=== PATIENT | female | born 2000 | race Caucasian/White ===

== ENCOUNTER 2018-06-02 04:34 | Emergency (ER) | payer OTHER ==
[~2018-06-02] VITALS: Ht 165.1 cm; Wt 68.0 kg
[2018-06-02] MEDS ORDERED: KEPPRA 500 MG500 M1 PO (04:52)
[2018-06-02] MEDS ORDERED: SYNTHROID25 MC1 PO (04:53)
[2018-06-02] MEDS ORDERED: DEPAKOTE ER500 MG PO (04:53)
[2018-06-02] MEDS ORDERED: MINIPRESS2 MG PO (04:54)
[2018-06-02] MEDS ORDERED: REMERON15 MG PO (04:54)
[2018-06-02] MEDS ORDERED: ZYPREXA ZYDIS10 MG PO (04:55)
[2018-06-02] MEDS ORDERED: ZYPREXA5 MG PO (04:55)
[2018-06-02 05:31] LABS: URINE BILIRUBIN NEGATIVE (Negative); URINE BLOOD TRACE (Negative); URINE CLARITY CLEAR; URINE COLOR YELLOW; URINE GLUCOSE-RANDOM* NEGATIVE (Negative); URINE KETONES NEGATIVE (Negative); URINE LEUKOCYTES-REFLEX NEGATIVE (Negative); URINE NITRITE-REFLEX NEGATIVE (Negative); URINE PROTEIN (DIPSTICK) NEGATIVE (Negative); URINE UROBILINOGEN 0.2 E.U./dl (0.2-1.0)
[2018-06-02 05:36] LABS: HEMATOCRIT 29.4 % (37.0-47.0); HEMOGLOBIN 9.7 gm/dL (12.0-15.0); MCH 26.1 pg (26.0-34.0); MCHC 33.1 g/dL (28.0-37.0); MCV 78.9 fL (80.0-100.0); PLATELET COUNT 237 thou/uL (150-400); RBC 3.72 mil/uL (4.20-5.00); RDW 16.4 % (10.5-14.5)
[2018-06-02 05:46] LABS: CALCIUM 8.1 mg/dL (8.5-10.1); CREATININE 0.9 mg/dL (0.6-1.0); POTASSIUM 3.4 mmol/L (3.5-5.1)
[2018-06-02 05:51] LABS: TOTAL BILIRUBIN 0.2 mg/dL (<0.1-1.0)
[2018-06-02 06:01] LABS: ALBUMIN 3.3 g/dL (3.4-5.0)
[2018-06-02 06:27] LABS: ABSOLUTE NEUTROPHILS 2.6 thou/uL (1.4-8.2); ATYPICAL LYMPHS 1 %
[2018-06-02 06:28] LABS: ANISOCYTOSIS 1+; MICROCYTES 2+; POLYCHROMASIA OCCASIONAL
[2018-06-02] MEDS ORDERED: ONDANSETRON HCL4 M2 PO (07:35)
[2018-06-02 08:27] VITALS: BP 125/67
== END 2018-06-02 08:20 | disposition home or self-care (01) ==
LOC: ER 04:34
PROVIDERS: Emergency Medicine
DX: R11.2 Nausea with vomiting, unspecified (principal); R10.31 Right lower quadrant pain; R19.7 Diarrhea, unspecified

== ENCOUNTER 2018-07-01 20:45 | Emergency (ER) | payer OTHER ==
[~2018-07-01] VITALS: Ht 160 cm; Wt 61.2 kg
[~2018-07-01 20:45] MED LIST: DEPAKOTE ER500 MG PO; KEPPRA 500 MG500 M1 PO; MINIPRESS2 MG PO; ONDANSETRON HCL4 M2 PO; REMERON15 MG PO; SYNTHROID25 MC1 PO; ZYPREXA ZYDIS10 MG PO; ZYPREXA5 MG PO
[2018-07-01 21:16] LABS: ABSOLUTE NEUTROPHILS 4.2 thou/uL (1.4-8.2); BASOPHILS 0.5 % (0.0-2.0); EOSINOPHILS 2.8 % (0.0-3.0); HEMATOCRIT 35.8 % (37.0-47.0); HEMOGLOBIN 12.1 gm/dL (12.0-15.0); LYMPHOCYTES 18.6 % (24.0-44.0); MCH 27.3 pg (26.0-34.0); MCHC 33.7 g/dL (28.0-37.0); MCV 80.9 fL (80.0-100.0); MONOCYTES 9.3 % (1.0-8.0); PLATELET COUNT 287 thou/uL (150-400); POLYS 68.8 % (36.0-66.0); RBC 4.42 mil/uL (4.20-5.00); WBC 6.1 thou/uL (4.0-11.0)
[2018-07-01 21:25] LABS: ANION GAP 8 mmol/L (7-16); BUN 9 mg/dL (7-18); CALCIUM 9.1 mg/dL (8.5-10.1); CHLORIDE 103 mmol/L (98-107); CO2 26 mmol/L (21-32); GLUCOSE 99 mg/dL (74-106); SALICYLATE < 2.8 mg/dL (2.8-20.0); SODIUM 137 mmol/L (136-145)
[2018-07-01 21:51] LABS: AMP/METHAMP Negative (Negative); BARBITURATES Negative (Negative); BENZODIAZEPINES Negative (Negative); COCAINE Negative (Negative); METHADONE Negative (Negative); OPIATES Negative (Negative); PCP Negative (Negative)
[2018-07-01 22:03] VITALS: BP 110/61
== END 2018-07-01 22:05 | disposition home or self-care (01) ==
LOC: ER 20:45
PROVIDERS: Emergency Medicine
DX: F44.5 Conversion disorder with seizures or convulsions (principal); F32.9 Major depressive disorder, single episode, unspecified; E03.9 Hypothyroidism, unspecified; Z88.8 Allergy status to other drugs, medicaments and biological substances

== ENCOUNTER 2019-02-15 13:11 | Emergency (ER) | payer OTHER ==
[~2019-02-15] VITALS: Ht 165.1 cm; Wt 86.2 kg
[2019-02-15 13:54] VITALS: BP 140/74
== END 2019-02-15 14:37 | disposition left against medical advice (07) ==
LOC: ER 13:11
DX: R20.0 Anesthesia of skin (principal); R53.1 Weakness; F32.9 Major depressive disorder, single episode, unspecified; E03.9 Hypothyroidism, unspecified; Z88.8 Allergy status to other drugs, medicaments and biological substances; Z90.49 Acquired absence of other specified parts of digestive tract

== ENCOUNTER 2019-12-14 11:28 | Emergency (ER) | payer OTHER ==
[~2019-12-14] VITALS: Ht 165.1 cm; Wt 86.2 kg
[2019-12-14 13:30] VITALS: BP 142/102
--- NOTE | 2019-12-15 13:45 | EKG ---
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
[2019-12-19] MEDS ORDERED: XARELTO20 MG PO (19:14)
[2019-12-19] MEDS ORDERED: VALIUM10 MG PO (19:15)
[2019-12-19] MEDS ORDERED: PROAIR HFA8.5 GM INH (19:16)
== END 2019-12-14 13:30 | disposition left against medical advice (07) ==
LOC: ER 11:28
DX: R56.9 Unspecified convulsions (principal); R10.9 Unspecified abdominal pain; F32.9 Major depressive disorder, single episode, unspecified; E03.9 Hypothyroidism, unspecified; Z88.8 Allergy status to other drugs, medicaments and biological substances

== ENCOUNTER 2019-12-20 17:53 | Emergency (ER) | payer OTHER ==
[~2019-12-20] VITALS: Ht 165.1 cm; Wt 86.2 kg
[~2019-12-20 17:53] MED LIST changes: +PROAIR HFA8.5 GM INH; +VALIUM10 MG PO; +XARELTO20 MG PO
[2019-12-20 18:42] VITALS: BP 135/74
[2019-12-21] MEDS ORDERED: ZOFRAN ODT4 MG PO (06:41)
[2019-12-21] MEDS ORDERED: ACID REDUCER20 MG PO (06:41)
[2019-12-21] MEDS ORDERED: CARAFATE 1 GM TA1 GM PO (06:41)
== END 2019-12-20 18:43 | disposition left against medical advice (07) ==
LOC: ER 17:53
DX: R55 Syncope and collapse (principal); F32.9 Major depressive disorder, single episode, unspecified; Z88.6 Allergy status to analgesic agent; W18.39XA Other fall on same level, initial encounter; Y92.89 Other specified places as the place of occurrence of the external cause; Y93.89 Activity, other specified; Y99.8 Other external cause status

== ENCOUNTER 2019-12-21 04:24 | Emergency (ER) | payer OTHER ==
[~2019-12-21] VITALS: Ht 165.1 cm; Wt 88.5 kg
[2019-12-21] MEDS ORDERED: ACID REDUCER20 MG PO (06:41)
[2019-12-21] MEDS ORDERED: CARAFATE 1 GM TA1 GM PO (06:41)
[2019-12-21] MEDS ORDERED: ZOFRAN ODT4 MG PO (06:41)
[2019-12-21 08:43] VITALS: BP 87/48
[2019-12-21 09:42] LABS: ABSOLUTE NEUTROPHILS 2.1 thou/uL (1.4-8.2); BASOPHILS 0.9 % (0.0-2.0); EOSINOPHILS 3.8 % (0.0-3.0); HEMATOCRIT 37.1 % (37.0-47.0); HEMOGLOBIN 12.6 gm/dL (12.0-15.0); LYMPHOCYTES 33.6 % (24.0-44.0); MCH 28.9 pg (26.0-34.0); MCV 85.2 fL (80.0-100.0); MONOCYTES 11.5 % (1.0-8.0); PLATELET COUNT 364 thou/uL (150-400); POLYS 50.2 % (36.0-66.0); RBC 4.35 mil/uL (4.20-5.00); RDW 16.1 % (10.5-14.5); WBC 4.2 thou/uL (4.0-11.0)
== END 2019-12-21 10:26 | disposition home or self-care (01) ==
LOC: ER 04:24
PROVIDERS: Emergency Medicine
DX: K92.0 Hematemesis (principal); R10.13 Epigastric pain; F32.9 Major depressive disorder, single episode, unspecified; E03.9 Hypothyroidism, unspecified; K29.70 Gastritis, unspecified, without bleeding; Z88.6 Allergy status to analgesic agent; Z88.8 Allergy status to other drugs, medicaments and biological substances

== ENCOUNTER 2020-06-09 15:46 | Inpatient (IN) | payer OTHER ==
[~2020-06-09] VITALS: Ht 165.1 cm; Wt 88.0 kg
[~2020-06-09 15:46] MED LIST changes: +ACID REDUCER20 MG PO; +CARAFATE 1 GM TA1 GM PO; +ZOFRAN ODT4 MG PO
[2020-06-09 15:49] VITALS: BP 167/132
[2020-06-09 17:50] LABS: URINE BILIRUBIN NEGATIVE (Negative); URINE BLOOD NEGATIVE (Negative); URINE CLARITY CLEAR; URINE COLOR YELLOW; URINE GLUCOSE-RANDOM* NEGATIVE (Negative); URINE KETONES NEGATIVE (Negative); URINE LEUKOCYTES-REFLEX NEGATIVE (Negative); URINE NITRITE-REFLEX NEGATIVE (Negative); URINE PROTEIN (DIPSTICK) NEGATIVE (Negative); URINE UROBILINOGEN 0.2 E.U./dl (0.2-1.0)
[2020-06-09 17:59] LABS: AMP/METHAMP Negative (Negative); BARBITURATES Negative (Negative); BENZODIAZEPINES POSITIVE (Negative); COCAINE Negative (Negative); METHADONE Negative (Negative); OPIATES Negative (Negative); PCP Negative (Negative)
[2020-06-09 18:20] LABS: ABSOLUTE NEUTROPHILS 3.3 thou/uL (1.4-8.2); BASOPHILS 0.9 % (0.0-2.0); EOSINOPHILS 1.4 % (0.0-3.0); HEMATOCRIT 38.4 % (37.0-47.0); HEMOGLOBIN 13.3 gm/dL (12.0-15.0); LYMPHOCYTES 23.6 % (24.0-44.0); MCH 29.5 pg (26.0-34.0); MCHC 34.8 g/dL (28.0-37.0); MCV 84.7 fL (80.0-100.0); MONOCYTES 11.5 % (1.0-8.0); PLATELET COUNT 312 thou/uL (150-400); POLYS 62.6 % (36.0-66.0); RBC 4.53 mil/uL (4.20-5.00); RDW 15.2 % (10.5-14.5); WBC 5.3 thou/uL (4.0-11.0)
[2020-06-09 18:32] LABS: ANION GAP 10 mmol/L (7-16); BUN 7 mg/dL (7-18); CALCIUM 9.1 mg/dL (8.5-10.1); CHLORIDE 100 mmol/L (98-107); CO2 26 mmol/L (21-32); CREATININE 0.9 mg/dL (0.6-1.0); GLUCOSE 97 mg/dL (74-106); POTASSIUM 3.5 mmol/L (3.5-5.1); SODIUM 136 mmol/L (136-145)
[2020-06-09 18:34] LABS: APTT 27.8 Seconds (24.5-32.8); INR 1.1; PROTIME 10.8 Seconds (9.3-11.4)
[2020-06-09 18:37] LABS: SGOT 32 U/L (15-37); SGPT 41 U/L (30-65); TOTAL BILIRUBIN 0.4 mg/dL (0.2-1.0); TOTAL PROTEIN 7.5 g/dL (6.4-8.2); TROPONIN-I <0.06 ng/mL (<0.06)
[2020-06-09 19:28] VITALS: BP 167/132
[2020-06-09 21:00] VITALS: BP 97/64
[2020-06-09 23:29] VITALS: BP 108/63
[2020-06-10 03:08] VITALS: BP 103/57
[2020-06-10] MEDS ORDERED: PROZAC20 M1 PO (03:42)
[2020-06-10] MEDS ORDERED: LEVO-T50 MCG PO (03:44)
[2020-06-10] MEDS ORDERED: OMEPRAZOLE 20 M20 M1 PO (03:45)
[2020-06-10] MEDS ORDERED: ZYRTEC 10 MG TA10 MG PO (03:48)
[2020-06-10] MEDS ORDERED: COLACE 100 MG100 MG PO (03:50)
[2020-06-10] MEDS ORDERED: METRONIDAZOLE500 M4 PO (03:52)
[2020-06-10] MEDS ORDERED: METRONIDAZOLE500 M4 (03:52)
[2020-06-10 06:49] LABS: CALCIUM 8.4 mg/dL (8.5-10.1); CREATININE 0.8 mg/dL (0.6-1.0); POTASSIUM 3.5 mmol/L (3.5-5.1)
--- NOTE | 2020-06-10 09:12 | EKG ---
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2000 Requested By: Alber Prasad Order Number: [id number] MD: Rigo Jorgensen Measurements Intervals [place] Rate: 70 P: 23 TN: 136 QRS: -5 QRSD: 105 T: 26 QT: 393 QTc: 425 Interpretive Statements Sinus rhythm RSR' in V1 or V2, right VCD Compared to ECG 12/14/2019 11:41:11 RSR' in V1 or V2 now present Electronically Signed On 06-10-2020 9:12:13 CDT by Rigo Jorgensen [email or web address] <ELECTRONICALLY SIGNED> By: Rigo Jorgensen MD, [facility] 06/10/20911 09 09 Rigo Jorgensen MD, [facility] /EPI
[2020-06-10 16:01] VITALS: BP 122/76
[2020-06-10 16:47] VITALS: BP 105/63
[2020-06-10 16:47] LABS: HEMATOCRIT 40.3 % (37.0-47.0); HEMOGLOBIN 13.8 gm/dL (12.0-15.0); MCH 29.4 pg (26.0-34.0); MCHC 34.2 g/dL (28.0-37.0); RBC 4.68 mil/uL (4.20-5.00); RDW 15.3 % (10.5-14.5)
[2020-06-10 16:58] LABS: CREATININE 1.1 mg/dL (0.6-1.0); POTASSIUM 3.7 mmol/L (3.5-5.1)
[2020-06-10 17:55] VITALS: BP 103/69
[2020-06-11] VITALS (14 sets, daily range): BP systolic 90–126; BP diastolic 43–80
--- NOTE | 2020-06-11 07:53 | EKG ---
[facility] [address] [address] ELECTROCARDIOGRAM REPORT Name: JAMES CAMPBELL Room #: 242-P ADM IN M.R.#: [id number] Admission: 06/09/20 Attend Phys: Sharad Campos MD Discharge: Date of : [birth year] Report #: [id number] THIS REPORT FOR: cc: WILSON - No family physician/PCP WILSON - No family physician/PCP Rigo Jorgensen MD [facility] ~ THIS REPORT FOR: //name// 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 : 2000 Requested By: Sharad Campos Order Number: [id number] MD: Rigo Jorgensen Measurements Intervals [place] Rate: 76 P: 36 [place]: 123 QRS: -19 QRSD: 110 T: 56 QT: 470 QTc: 529 Interpretive Statements Sinus rhythm Borderline left axis deviation RSR' in V1 or V2, probably normal variant Minimal ST depression Prolonged QT interval Compared to ECG 06/09/2020 19:10:36 Prolonged QT interval now present Electronically Signed On 06-11-2020 7:53:30 CDT by Rigo Jorgensen [email or web address] <ELECTRONICALLY SIGNED> By: Rigo Jorgensen MD, FAC 06/11/20 0753 1627 1627 Rigo Jorgensen MD, [facility] /EPI
[2020-06-12] VITALS (19 sets, daily range): BP systolic 91–120; BP diastolic 47–82
[2020-06-13] VITALS (14 sets, daily range): BP systolic 107–132; BP diastolic 51–81
--- NOTE | 2020-06-13 07:58 | EKG ---
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 : 2000 Requested By: Vinicius Peguero Order Number: [id number] MD: Rigo Jorgensen Measurements Intervals [place] Rate: 101 P: 79 [place]: 133 QRS: 9 QRSD: 94 T: 36 QT: 333 QTc: 432 Interpretive Statements Sinus tachycardia RSR' in V1 or V2, right VCD Compared to ECG 06/10/2020 16:27:52 Prolonged QT interval no longer present Electronically Signed On 06-13-2020 7:58:04 CDT by Rigo Jorgensen [email or web address] <ELECTRONICALLY SIGNED> By: Rigo Jorgensen MD, [facility] 06/13/20 0758 1840 1840 Rigo Jorgensen MD, [facility] /EPI
[2020-06-13] MEDS ORDERED: CHLORPROMAZINE25 M3 PO (10:16)
[2020-06-13] MEDS ORDERED: XANAX 0.5 MG0.5 M1 PO (10:16)
[2020-06-13] MEDS ORDERED: KEPPRA XR500 MG PO (11:37)
--- NOTE | 2020-06-15 10:46 | EEG ---
[facility] [place] [address] ELECTROENCEPHALOGRAM Name: JAMES CAMPBELL Room #: 242-P [facility] IN M.R.#: [id number] Admission: 06/09/20 Attend Phys: Sharad Campos MD Discharge: 06/13/20 Date of : 98 Report #: [id number] THIS REPORT FOR: //name// CC: Sharad Campos [facility] physician/PCP DATE OF SERVICE: 06/10/2020 This patient is being evaluated for the possibility of seizure. The patient's EEG was done by placing the electrode by standard 10-20 system of electrode placement. Both referential and sequential montages were used for recording. Background activity in this patient's EEG is about 9 Hz and 30 microvolts. This patient became drowsy and that is associated with bilateral slowing and vertex sharp waves. Photic stimulation was unremarkable. Throughout the record, no active epileptiform activity was noticed. IMPRESSION: This patient's EEG is within normal limits. Thank you very much for this referral. <ELECTRONICALLY SIGNED> By: Lam Garcia MD 06/15/20 1046 1658 1705 Lam Garcia MD /nt
--- NOTE | 2020-06-15 10:46 | HC ---
[facility] [place] [address] CONSULTATION Name: JAMES CAMPBELL Room #: 242-P [facility] IN M.R.#: [id number] Admission: 06/09/20 Attend Phys: Sharad Campos MD Discharge: 06/13/20 Date of : [birth year] Report #: [id number] THIS REPORT FOR: cc: WILSON - No family physician/PCP WILSON - No family physician/PCP Lam Garcia MD ~ CC: Sharad RACHEL physician/PCP DATE OF SERVICE: 06/10/2020 HISTORY OF PRESENT ILLNESS: This is a 20-year-old female patient who was evaluated by me for the possibility of seizure and stroke. The history is pretty confusing and is summarized in admission history and physical examination as well as the Emergency Room physician's evaluation. She said she started having seizure when she was 16. It started in relation to some head injury she had in the past. Records indicate that she has left AMA twice. She indicates that she has not seen any neurologist except when she is admitted to the hospital. The record here indicates that I saw this patient in November. She has been to [facility] and [facility] according to the records, she was pretty reluctant to provide any more history in that regard. REVIEW OF SYSTEMS: Positive for history of DVT. She has an extensive psychiatric history. Today, she gave a history that she has been taking Keppra for a year; that history is different than the one she provided some time ago in November. It looks like from the records, she has been tried on Vimpat as well as Depakote. She does not like Depakote; therefore, she is on Keppra. That was a relevant 14-point review of system. PAST MEDICAL HISTORY: Positive for psychiatric problem. On my examination last time, she had an examination, which appeared to be psychological. She had declined EEGs in the past. She has seen Psychiatry on the last visit. PAST MEDICAL HISTORY: Positive for seizure, but I am not completely certain that all the episodes are epileptiform. FAMILY HISTORY: Noncontributory. SOCIAL HISTORY: She says she does not drink any alcohol. PHYSICAL EXAMINATION: Her examination was pretty limited because of psychiatric overlay. She talks normally. She knows what month it is. She gives a response after sometime. Sometimes, she counts fingers improperly, but when she wants to, it looks like she can count it properly. She moves all four extremities. There is no meningeal sign in this patient. She does have respiratory problems for which she has been admitted. She does not appear to have any significant [address] [address] CONSULTATION Name: JAMES CAMPBELL Room #: 242-P [facility] IN M.R.#: [id number] Admission: 06/09/20 Attend Phys: Sharad Campos MD Discharge: 06/13/20 Date of : [birth year] Report #: [id number] cardiac problems. Her blood pressure is 103/57, respirations 18, pulse is 74, temperature is 98.4. Her hearing and vision looks adequate. LABORATORY DATA: White count is 5.3. She did have CT scans in the past and in fact had multiple of them and that does not show any clearcut abnormality. I do not see any MRI or CT angio. IMPRESSION: This patient has presented with stroke-like symptoms, which she indicates has resolved. She has a huge psychiatric overlay and that makes it very difficult to further evaluate this patient. I will check an MRI and MRA to see if there is any abnormality, which needs to be addressed. I will get an EEG done. I am not convinced that the episodes she is having are seizures or nonepileptiform event. There is a good possibility they are nonepileptiform event at least some of them. I discussed with her clearly that we do not have video monitored EEG here. She can be on Keppra. She should take seizure precautions and not drive, but she really needs to follow up to [facility] or where she has been. About 50 minutes of time was spent taking care of this patient and majority of that was spent reviewing her past workup, counseling, and coordinating her care. <ELECTRONICALLY SIGNED> By: Lam Garcia MD 06/15/20 1046 0850 0927 Lam Garcia MD /nt
== END 2020-06-13 12:30 | disposition home or self-care (01) | DRG 101 ==
LOC: ER 15:46 → ICU 18:59 → 3W 18:59 → EROBS 18:59 → 3W 20:30 → 4W 06-10 17:44 → ICU 06-10 20:35
PROVIDERS: Emergency Medicine; Nurse Practitioner Family; ADMIT Hospitalist; ATTEND Hospitalist
DX: G40.909 Epilepsy, unspecified, not intractable, without status epilepticus (principal); F31.9 Bipolar disorder, unspecified; F20.9 Schizophrenia, unspecified; E03.9 Hypothyroidism, unspecified; F43.10 Post-traumatic stress disorder, unspecified; R33.9 Retention of urine, unspecified; Z60.2 Problems related to living alone; F60.3 Borderline personality disorder; Z20.828 Contact with and (suspected) exposure to other viral communicable diseases; X58.XXXA Exposure to other specified factors, initial encounter; Z88.8 Allergy status to other drugs, medicaments and biological substances; Z79.01 Long term (current) use of anticoagulants; Z86.718 Personal history of other venous thrombosis and embolism; Z90.49 Acquired absence of other specified parts of digestive tract; Y93.89 Activity, other specified; Y92.89 Other specified places as the place of occurrence of the external cause; Y99.8 Other external cause status; Z79.899 Other long term (current) drug therapy
CPT/HCPCS: 10078; 10203; 10879